=== PATIENT | male | born 1965 | race Two or more races ===

== ENCOUNTER 2025-03-23 12:58 | Inpatient (IN) | payer MEDICAID, OTHER ==
[~2025-03-23] VITALS: Ht 172.7 cm; Wt 78.1 kg
[~2025-03-23 12:58] MED LIST: ENAL1TAB48 PO; HYDR12.59 PO; HYDR25TA4 PO; POTA1TAB4 PO
--- NOTE | 2025-03-23 14:40 | ED.PDOC ---
HPI (NEURO) HPI Comments This is a 59 year old male BIB son presenting to the ED with chief complaint of dizziness. Son reports that the patient has been experiencing dizziness with associated mild posterior headache since last night, but this morning he began to have episodes of nausea and vomiting. Son relays that the patient has history of a CVA in December of this year and is currently wheelchair bound. Patient denies any abdominal pain, chest pain, SOB, numbness, or weakness. Chief Complaint: Dizziness Time Seen by MD: 14:36 Reviewed Notes: Nurses Notes, Medications, Allergies Information Source: Patient Mode of Arrival: Wheelchair Severity: Moderate Dizziness/Weakness Severity: Unable to do activities Headache Severity: Mild Timing: Days Duration: Since onset Prehospital treatment: None Headache Quality: Aching Headache Location: Occipital Onset: At rest Circumstances: Spontaneous Past Medical History PAST MEDICAL HISTORY: CVA Surgical History: Denies all surgeries Family History Family History: Reviewed,noncontributory to illness Social History Smoker: Non-Smoker Alcohol: Denies ETOH Use Drugs: Denies Drug Use Lives In: Home Constitutional: denies: chills, diaphoresis, fatigue, fever, malaise, sweats, weakness, others EENTM: denies: blurred vision, double vision, ear bleeding, ear discharge, ear drainage, ear pain, ear ringing, eye pain, eye redness, hearing loss, mouth pain, mouth swelling, nasal discharge, nose bleeding, nose congestion, nose pain, photophobia, tearing, throat pain, throat swelling, voice changes, others Respiratory: denies: cough, hemoptysis, orthopnea, SOB at rest, shortness of breath, SOB with excertion, stridor, wheezing, others Cardiovascular: denies: chest pain, dizzy spells, diaphoresis, Dyspnea on exertion, edema, irregular heart beat, left arm pain, lightheadedness, palpitations, PND, syncope, others Gastrointestinal: reports: nausea, vomiting; denies: abdomen distended, abdominal pain, blood streaked bowels, constipated, diarrhea, dysphagia, difficulty swallowing, hematemesis, melena, poor appetite, poor fluid intake, rectal bleeding, rectal pain, others Genitourinary: denies: burning, dysuria, flank pain, frequency, hematuria, incontinence, penile discharge, penile sore, pain, testicle pain, testicle swelling, urgency, others Neurological: reports: dizziness, headache; denies: fainting, left sided numbness, left sided weakness, numbness, paresthesia, pre-existing deficit, right sided numbness, right sided weakness, seizure, speech problems, tingling, tremors, weakness, others Musculoskeletal: denies: back pain, gout, joint pain, joint swelling, muscle pain, muscle stiffness, neck pain, others Integumetry: denies: bruises, change in color, change in hair/nails, dryness, laceration, lesions, lumps, rash, wounds, others Allergic/Immunocompromised: denies: Difficulty Healing, Frequent Infections, Hives, Itching, others Hematologic/Lymphatic: denies: anemia, blood clots, easy bleeding, easy bruising, swollen glands, others Endocrine: denies: excessive hunger, excessive sweating, excessive thirst, excessive urination, flushing, intolerance to cold, intolerance to heat, unexplained weight gain, unexplained weight loss, others Psychiatric: denies: anxiety, bipolar disorder, depression, hopeless, panic disorder, schizophrenia, sleepless, suicidal, others All Other Systems: Reviewed and Negative Physical Exam General Appearance: No Apparent Distress, Other (Chronically ill-appearing wheelchair bound) HEENT: Normal ENT Inspection, Pharynx Normal, TMs Normal Neck: Full Range of Motion, Non-Tender, Normal, Normal Inspection Respiratory: Chest Non-Tender, Lungs Clear, No Accessory Muscle Use, No R espiratory Distress, Normal Breath Sounds Cardiovascular: No Edema, No JVD, No Murmur, No Gallop, Normal Peripheral Pulses, Regular Rate/Rhythm Breast Exam: Deferred Gastrointestinal: No Organomegaly, Non Tender, No Pulsatile Mass, Normal Bowel Sounds, Soft Genitalia: Deferred Pelvic: Deferred Rectal: Deferred Extremities: No calf tenderness, Normal capillary refill, Normal inspection, Non-tender, No pedal edema Musculoskeletal : Apperance: Normal Neurologic: Alert, Normal Affect, Normal Mood, No Sensory Deficits Cerebellar Function: NOT DONE Reflexes: NOT DONE Skin: Dry, Normal Color, Warm Lymphatic: No Adenopathy Was a procedure done? Was a procedure done?: No Differential Diagnosis (SZ) Seizure: N/A CVA: Encephalopathy, Hypoglycemia General Weakness: Hypotension, Hypovolemia Headache: CVA, Mass Lesion X-Ray, Labs, Meds, VS Vital Signs Date Time Temp Pulse Resp B/P (MAP) Pulse Ox O2 Delivery O2 Flow Rate FiO2 03/23/25 17:58 98.4 70 16 118/84 (95) 100 98.4 03/23/25 15:18 98.2 77 16 115/76 (89) 98 98.2 03/23/25 13:18 75 03/23/25 13:00 97.8 81 18 128/91 98 97.8 Lab Test 03/23/25 15:58 03/23/25 14:40 03/23/25 13:10 Range/Units Troponin I High Sensitivity < 3 L < 3 L </=54 ng/L White Blood Count 8.5 4.4-10.8 10^3/uL Red Blood Count 4.93 4.5-5.90 10^6/uL Hemoglobin 14.9 13.5-17.5 g/dL Hematocrit 43.5 41.0-53.0 % Mean Corpuscular Volume 88.3 80.0-100.0 fL Mean Corpuscular Hemoglobin 30.1 28.0-32.0 pg Mean Corpuscular Hemoglobin Concent 34.1 32.0-36.0 g/dL Red Cell Distribution Width 13.0 11.8-14.3 % Platelet Count 263 140-450 10^3/uL Mean Platelet Volume 7.2 6.9-10.8 fL Neutrophils (%) (Auto) 70.4 37.0-80.0 % Lymphocytes (%) (Auto) 21.6 10.0-50.0 % Monocytes (%) (Auto) 6.3 0.0-12.0 % Eosinophils (%) (Auto) 1.1 0.0-7.0 % Basophils (%) (Auto) 0.6 0.0-2.0 % Neutrophils # (Auto) 6.0 1.6-8.6 10 ^3/uL Lymphocytes # (Auto) 1.8 0.4-5.4 10 ^3/uL Monocytes # (Auto) 0.5 0-1.3 10 ^3/uL Eosinophils # (Auto) 0.1 0-0.8 10 ^3/uL Basophils # (Auto) 0.1 0-0.2 10 ^3/uL Nucleated Red Blood Cells 0.0 % Sodium Level 140 136-145 mmol/L Potassium Level 4.5 3.5-5.1 mmol/L Chloride Level 102 98-107 mmol/L Carbon Dioxide Level 26 20-31 mmol/L Anion Gap 12 5-15 Blood Urea Nitrogen 12 9-23 mg/dL Creatinine 0.91 0.700-1.30 mg/dL Glomerular Filtration Rate Calc 98 >90 mL/min BUN/Creatinine Ratio 13.2 10.0-20.0 Serum Glucose 146 H 74-106 mg/dL Calcium Level 10.1 8.7-10.4 mg/dL B-Type Natriuretic Peptide 11.62 0-100 pg/mL POC Glucose 131 H 70-106 mg/dl Time of 1ST Reevaluation: 15:35 Reevaluation 1ST: Unchanged Patient Education/Counseling: Diagnosis, Treatment Family Education/Counseling: Diagnosis, Treatment Departure 1 Departure Time of Disposition: 19:03 (Patient with a worsening dizziness and weakness. We will admit patient for further workup) Impression: Primary Impression: Near syncope Additional Impressions: Dizziness Generalized weakness Disposition: ADMITTED INPATIENT Admit to: [facility] Condition: Guarded Critical Care Note Critical Care Time?: No Stability Stability form required: No Heart Score Heart Score: Heart Score Response (Comments) Value History N/A 0 EKG N/A 0 Age N/A 0 Risk Factors N/A 0 Troponin N/A 0 Total 0 I personally scribed for JENI MARINELLI MD ([email or web address]) on 03/23/25 at 14:40. Electronically submitted by Rajiv May ([email or web address]). JENI MARINELLI MD Mar 23, 2025 14:40
[2025-03-23 14:51] LABS: Hematocrit 43.5 % (41.0-53.0); Hemoglobin 14.9 g/dL (13.5-17.5); Mean Corpuscular Hemoglobin 30.1 pg (28.0-32.0); Mean Corpuscular Volume 88.3 fL (80.0-100.0); Nucleated Red Blood Cells % 0.0 %
[2025-03-23 14:56] LABS: Chloride 102 mmol/L (98-107); Potassium 4.5 mmol/L (3.5-5.1); Sodium 140 mmol/L (136-145)
[2025-03-23 14:57] LABS: Anion Gap 12 (5-15); Calcium 10.1 mg/dL (8.7-10.4); Carbon Dioxide 26 mmol/L (20-31)
[2025-03-23 15:02] LABS: BUN/Creatinine Ratio 13.2 (10.0-20.0); Blood Urea Nitrogen 12 mg/dL (9-23)
[2025-03-23 15:04] LABS: Glucose 146 mg/dL (74-106)
--- NOTE | 2025-03-23 15:29 | DVH ---
EXAM: XY CHEST PORTABLE HISTORY: weakness COMPARISON: None TECHNIQUE: Portable upright AP view of the chest was performed. FINDINGS: No pneumothorax, consolidative infiltrates, or pulmonary edema. The heart is not enlarged. IMPRESSION: No acute intrathoracic process.
--- NOTE | 2025-03-23 16:22 | DVH ---
EXAM: CT HEAD WITHOUT CONTRAST INDICATION: weakness TECHNIQUE: CT images of the head were obtained without administration of IV contrast. CT scans at this facility use dose modulation, iterative reconstruction, and/or weight based dosing when appropriate to reduce radiation dose to as low as reasonably achievable. COMPARISON: None FINDINGS: PARENCHYMA: No acute hemorrhage. There is no mass effect, midline shift, or herniation. There is preservation of the staples white differentiation. Large area of encephalomalacia of the right posterior frontal lobe measuring 4.6 x 4.6 cm. Small areas of periventricular white matter hypoattenuation. VENTRICLES: No hydrocephalus. EXTRA-AXIAL SPACES: No extra-axial fluid collections. OTHER: The bony structures are intact. Visualized portions of the paranasal sinuses and mastoid air cells are clear. IMPRESSION: 1. No CT evidence of an acute intracranial abnormality. Sequelae of prior encephalomalacia/ large territory infarct along the right middle cerebral artery territory in the right posterior frontal lobe.
[2025-03-23] MEDS ORDERED: ONDANSETRON HCL 4 MG/2 ML VIAL IV PRN (19:30)
[2025-03-23] MEDS ORDERED: HYDROcodone-ACET 5/325MG TAB PO PRN (19:30)
[2025-03-23] MEDS ORDERED: ACETAMINOPHEN 325 MG TAB PO PRN (19:30)
[2025-03-23] MEDS ORDERED: DOCUSATE SOD 100 MG CAP PO PRN (19:30)
--- NOTE | 2025-03-23 21:20 | DVHHP2 ---
History of Present Illness Reason for Visit: Generalized weakness History of Present Illness The patient is a 59-year-old male wheelchair-bound with past medical history of CVA with left-sided deficit and hypertension who presented to [facility] ED accompanied by his son with complaint of dizziness. As reported by son, patient has been experiencing dizziness associated with headache, nausea, vomiting, and generalized weakness. Son reports that patient will started physical therapy next week Wednesday. Patient was seen and evaluated in the ED, laboratory data shows WBC 8.5, platelets 263, sodium 140, potassium 4.5, BUN 12, creatinine 0.91, GFR 98, glucose 146, calcium 10.1, troponin < 3, BNP 11.42, blood pressure 118/84, heart rate 70, temperature 98.4 F, O2 saturation 99% on room air. Head CT showed no evidence of acute intracranial abnormality; sequelae of prior encephalomalacia/large territorial infarct along the right middle cerebral artery territory in the right posterior frontal lobe. Please see medication orders section in the computer. On my assessment, patient denied chest pain, no headache, diaphoresis, shortness of breaths, no abdominal pain, diarrhea, nausea, vomiting, fever, no chills. Patient was admitted for further neurology evaluation and medical management. Past Medical History CVA, HTN Past Surgical History Denies all surgeries Family History Reviewed, noncontributory to the management of this case. Past Social History The patient lives at home, denies smoking, alcohol or illicit drugs abuse. Review of Systems Constitutional: Yes: Weakness; No: Fever, Chills, Sweats, Malaise, Other Eyes: No: Pain, Vision change, Conjunctivae inflammation, Eyelid inflammation, Other, Redness ENT: No: Ear pain, Ear discharge, Nose pain, Nose discharge, Nose congestion, Mouth pain, Mouth swelling, Throat pain, Throat swelling, Other Respiratory: No: Cough, Dry, Shortness of breath, SOB with excertion, Wheezing, Hemoptysis, Pleuritic Pain, Sputum, Wheezing, Other Cardiovascular: No: Chest Pain, Palpitations, Orthopnea, Paroxysmal Noc. Dyspnea, Edema, Lt Headedness, Other Gastrointestinal: Nausea, Vomiting; No: Abdominal Pain, Diarrhea, Constipation, Melena, Hematochezia, Other Genitourinary: No Dysuria, No Frequency, No Incontinence, No Hematuria, No Retention, No Other Musculoskeletal: No: other, neck pain, shoulder pain, arm pain, back pain, hand pain, leg pain, foot pain Skin: No: Rash, Lesions, Jaundice, Bruising, Other Neurological: Weakness (Left-sided), Other (Headache); No: Numbness, Incoordination, Change in speech, Confusion, Seizures Allergies: Coded Allergies: NO KNOWN ALLERGIES (Unverified , 08/01/23) Medications Current Medications Medications Dose Ordered Sig/Kirill Route Start Time Stop Time Status Last Admin Dose Admin Sodium Chloride 10 ml Q8HR IV 03/23/25 22:00 Acetaminophen/ Hydrocodone Bitart 1 tab Q4HP PRN PO 03/23/25 19:30 Ondansetron HCl 4 mg Q4HP PRN IV 03/23/25 19:30 Docusate Sodium 100 mg BIDPRN PRN PO 03/23/25 19:30 Acetaminophen 650 mg Q6HP PRN PO 03/23/25 19:30 Exam Vital Signs Vital Signs Date Time Temp Pulse Resp B/P (MAP) Pulse Ox O2 Delivery O2 Flow Rate FiO2 03/23/25 20:58 98.4 76 19 111/83 (92) 99 98.4 General Appearance: Alert, Oriented X3, Cooperative, No acute distress HEENT: Atraumatic, PERRLA, EOMI, Mucous membr. moist/pink Respiratory: Normal air movement Cardiovascular: Regular rate, Normal S1, Normal S2, No murmurs Abdominal: Normal bowel sounds, Soft, No tenderness, No hepatospenomegaly, No masses Extremities: No clubbing, No cyanosis, No edema, Normal pulses, No tenderness/swelling Skin: No rashes, No significant lesion Neuro: Normal speech, Normal tone, Sensation intact, Cranial nerves 3-12 NL, Reflexes 2+, Other (Generalized weakness) Psych/Mental Status: Mental status NL, Mood NL Labs/Xrays Labs Test 03/23/25 15:58 03/23/25 14:40 03/23/25 13:10 Range/Units Troponin I High Sensitivity < 3 L </=54 ng/L White Blood Count 8.5 4.4-10.8 10^3/uL Red Blood Count 4.93 4.5-5.90 10^6/uL Hemoglobin 14.9 13.5-17.5 g/dL Hematocrit 43.5 41.0-53.0 % Mean Corpuscular Volume 88.3 80.0-100.0 fL Mean Corpuscular Hemoglobin 30.1 28.0-32.0 pg Mean Corpuscular Hemoglobin Concent 34.1 32.0-36.0 g/dL Red Cell Distribution Width 13.0 11.8-14.3 % Platelet Count 263 140-450 10^3/uL Mean Platelet Volume 7.2 6.9-10.8 fL Neutrophils (%) (Auto) 70.4 37.0-80.0 % Lymphocytes (%) (Auto) 21.6 10.0-50.0 % Monocytes (%) (Auto) 6.3 0.0-12.0 % Eosinophils (%) (Auto) 1.1 0.0-7.0 % Basophils (%) (Auto) 0.6 0.0-2.0 % Neutrophils # (Auto) 6.0 1.6-8.6 10 ^3/uL Lymphocytes # (Auto) 1.8 0.4-5.4 10 ^3/uL Monocytes # (Auto) 0.5 0-1.3 10 ^3/uL Eosinophils # (Auto) 0.1 0-0.8 10 ^3/uL Basophils # (Auto) 0.1 0-0.2 10 ^3/uL Nucleated Red Blood Cells 0.0 % Sodium Level 140 136-145 mmol/L Potassium Level 4.5 3.5-5.1 mmol/L Chloride Level 102 98-107 mmol/L Carbon Dioxide Level 26 20-31 mmol/L Anion Gap 12 5-15 Blood Urea Nitrogen 12 9-23 mg/dL Creatinine 0.91 0.700-1.30 mg/dL Glomerular Filtration Rate Calc 98 >90 mL/min BUN/Creatinine Ratio 13.2 10.0-20.0 Serum Glucose 146 H 74-106 mg/dL Hemoglobin A1c 7.6 H <5.7 % A1C Calcium Level 10.1 8.7-10.4 mg/dL B-Type Natriuretic Peptide 11.62 0-100 pg/mL POC Glucose 131 H 70-106 mg/dl PATIENT: JACQUI MORGAN ACCT: [id number] UNIT: [id number] : 1965 LOC: ER ROOM / BED: / AGE / SEX: 59 / M ADM STATUS: REG ER SERVICE 1433 ORDERING PHYSICIAN: JENI MARINELLI MD PROCEDURE(s): HWOCT - HEAD WITHOUT CONTRAST REASON: weakness ORDER NUMBER(s): [id number], ACCESSION NUMBER(s): [id number] EXAM: CT HEAD WITHOUT CONTRAST INDICATION: weakness TECHNIQUE: CT images of the head were obtained without administration of IV contrast. CT scans at this facility use dose modulation, iterative reconstruction, and/or weight based dosing when appropriate to reduce radiation dose to as low as reasonably achievable. COMPARISON: None FINDINGS: PARENCHYMA: No acute hemorrhage. There is no mass effect, midline shift, or herniation. There is preservation of the staples white differentiation. Large area of encephalomalacia of the right posterior frontal lobe measuring 4.6 x 4.6 cm. Small areas of periventricular white matter hypoattenuation. VENTRICLES: No hydrocephalus. EXTRA-AXIAL SPACES: No extra-axial fluid collections. OTHER: The bony structures are intact. Visualized portions of the paranasal sinuses and mastoid air cells are clear. IMPRESSION: 1. No CT evidence of an acute intracranial abnormality. Sequelae of prior encephalomalacia/large territory infarct along the right middle cerebral artery territory in the right posterior frontal lobe. ORDERING PHYSICIAN: JENI MARINELLI MD PROCEDURE(s): CXRP - CHEST PORTABLE REASON: weakness ORDER NUMBER(s): [id number], ACCESSION NUMBER(s): [id number] EXAM: XY CHEST PORTABLE HISTORY: weakness COMPARISON: None TECHNIQUE: Portable upright AP view of the chest was performed. FINDINGS: No pneumothorax, consolidative infiltrates, or pulmonary edema. The heart is not enlarged. IMPRESSION: No acute intrathoracic process. SEPSIS Sepsis Screen Date sepsis recognized/suspect: Mar 23, 2025 Time Sepsis recognized/suspect: 1301 Recent Procedure: No On Antibiotic Therapy: No Respiratory Rate >20: No Heart Rate >90: No Temp<36 C (96.8 F) or >38.3 C: No SBP <90 or MAP <65 mmHG: No New Acute Mental Status Change: No Is the patient on CPAP, BIPAP,: No Physician Orders Electrocardigram (03/23/25 13:27) Urinalysis (03/23/25 14:33) Chest Portable (03/23/25 14:33) Head Without Contrast (03/23/25 14:33) Electrocardigram (03/23/25 14:33) Electrocardigram (03/23/25 15:33) Electrocardigram (03/23/25 17:33) Allergies (03/23/25 19:20) Code Status (03/23/25 19:20) Sodium Chloride Lock (Saline Lock Ns) (03/23/25 22:00) Oxygen Per Hour (03/23/25 19:20) Hydrocodone-Acet 5/325mg Tab (Snover (03/23/25 19:30) Ondansetron Hcl (Zofran) (03/23/25 19:30) Docusate Sodium Capsule (Colace Capsule) (03/23/25 19:30) Fall Risk Precautions In Place QSHIFT (03/23/25 19:20) Complete Blood Count (03/24/25 04:00) Comprehensive Metabolic Panel (03/24/25 04:00) Cardiac Diet-2gna,Lofat,Lochol (03/24/25 Breakfast) Condition: Serious (03/23/25 19:20) Acetaminophen Tablet (Tylenol Tablet) (03/23/25 19:30) Maintain Bed Rest (03/23/25 19:20) Sequential Compression Device (03/23/25 ) Admit (03/23/25 21:18) Nitroglycerin Sublingual (Ntrostat Subli (03/23/25 21:30) Vital Signs Date Time Temp Pulse Resp B/P (MAP) Pulse Ox O2 Delivery O2 Flow Rate FiO2 03/23/25 20:58 98.4 76 19 111/83 (92) 99 98.4 03/23/25 17:58 98.4 70 16 118/84 (95) 100 98.4 03/23/25 15:18 98.2 77 16 115/76 (89) 98 98.2 Laboratory Tests Test 03/23/25 14:40 White Blood Count 8.5 10^3/uL (4.4-10.8) Assessment/Plan Assessment/Plan Generalized weakness Dizziness Nausea and vomiting History of cerebrovascular accident Plan 1. Admit to telemetry unit 2. Breathing treatment 3. Pain control management 4. Management of fluids and electrolytes 5. Consultation for Neurology/hospitalist 6. Diagnostic tests head CT 7. DVT prophylaxis-on aspirin 8. Repeat labs CBC, CMP in a.m. 9. Continue with current medical management 10. Treatment plan discussed with patient/son and RN. Patient/son verbalized understanding. Plan discussed with: Patient, Son (At bedside), Other (RN) My Orders Orders - MICHELLE AYALA DNP Procedure Category Date Status Time Allergies MAYTE 03/23/25 In Process 19:20 Code Status CODE 03/23/25 Transmitted 19:20 Sodium Chloride Lock PHA 03/23/25 In Process (Saline Lock Ns) 22:00 Oxygen Per Hour RT 03/23/25 Transmitted 19:20 Hydrocodone-Acet PHA 03/23/25 In Process 5/325mg Tab (Snover 19:30 Ondansetron Hcl PHA 03/23/25 In Process (Zofran) 19:30 Docusate Sodium PHA 03/23/25 In Process Capsule (Colace 19:30 Fall Risk Precautions MAYTE 03/23/[address] 19:20 Complete Blood Count LAB 03/24/25 Verified 04:00 Comprehensive LAB 03/24/25 Verified Metabolic Panel 04:00 Cardiac DIET 03/24/25 Transmitted Diet-2gna,Lofat,Lochol Breakfast Condition: Serious MAYTE 03/23/25 In Process 19:20 Acetaminophen Tablet PHA 03/23/25 In Process (Tylenol Tablet) 19:30 Maintain Bed Rest MAYTE 03/23/25 In Process 19:20 Sequential MAYTE 03/23/25 In Process Compression Device Admit ADMIT 03/23/25 Verified 21:18 Nitroglycerin PHA 03/23/25 Verified Sublingual (Ntrostat 21:30 Problem List: (1) Generalized weakness (2) Dizziness (3) Nausea and vomiting (4) History of cerebrovascular accident Date of Service: Mar 23, 2025 Billing Provider: MICHELLE AYALA DNP Common Visit Codes: [id number] INP/OBS CARE (HIGH) MICHELLE AYALA DNP Mar 23, 2025 21:20
[2025-03-23] MEDS ORDERED: MORPHINE SULFATE INJ 2 MG/ml SYRG IV PRN (21:30)
[2025-03-23] MEDS ORDERED: NITROGLYCERIN 0.4 MG SL TAB SL PRN (21:30)
[2025-03-23] MEDS: SODIUM CHLOR 0.9% PF (SALINE LOCK) 10ML VIAL/SYR IV SCH (23:37)
[2025-03-24 03:47] LABS: Hematocrit 44.3 % (41.0-53.0); Hemoglobin 14.8 g/dL (13.5-17.5); Mean Corpuscular Hemoglobin 30.0 pg (28.0-32.0); Mean Corpuscular Volume 90.0 fL (80.0-100.0); Nucleated Red Blood Cells % 0.1 %
[2025-03-24 04:08] LABS: Alkaline Phosphatase 84 U/L (46-116); Anion Gap 14 (5-15); BUN/Creatinine Ratio 27.5 (10.0-20.0); Blood Urea Nitrogen 22 mg/dL (9-23); Calcium 10.2 mg/dL (8.7-10.4); Carbon Dioxide 26 mmol/L (20-31); Chloride 101 mmol/L (98-107); Potassium 4.3 mmol/L (3.5-5.1); Sodium 141 mmol/L (136-145)
[2025-03-24 04:09] LABS: Total Protein 7.2 g/dL (5.7-8.2)
[2025-03-24 04:10] LABS: Albumin 4.6 g/dL (3.2-4.8); Bilirubin, Total 0.8 mg/dL (0.2-1.0)
[2025-03-24 04:16] LABS: Alanine Aminotransferase 92 U/L (7-40); Glucose 116 mg/dL (74-106)
[2025-03-24 08:00] VITALS: PULSE 68; RESP 17; O2SAT 100
[2025-03-24 08:26] LABS: Urine Protein, UAD TRACE (Negative)
--- NOTE | 2025-03-24 14:14 | DVHPN2 ---
Subjective I am assuming the care of the patient from today onwards. Patient is here for dizziness. Denies any headache denies any chest pain. Changes from previous H/P or p: No Changes Eyes: No Pain, No Vision change, No Conjunctivae inflammation, No Eyelid inflammation, No Other, No Redness ENT: No Ear pain, No Ear discharge, No Nose pain, No Nose discharge, No Nose congestion, No Mouth pain, No Mouth swelling, No Throat pain, No Throat swelling, No Other Cardiovascular: No Chest Pain, No Palpitations, No Orthopnea, No Paroxysmal Noc. Dyspnea, No Edema, No Lt Headedness, No Other Respiratory: No Cough, No Dry, No Shortness of breath, No SOB with excertion, No Wheezing, No Hemoptysis, No Pleuritic Pain, No Sputum, No Other Gastrointestinal: Nausea, Vomiting; No Abdominal Pain, No Diarrhea, No Constipation, No Melena, No Hematochezia, No Other Genitourinary: No Dysuria, No Frequency, No Incontinence, No Hematuria, No Retention, No Other Musculoskeletal: No other, No neck pain, No shoulder pain, No arm pain, No back pain, No hand pain, No leg pain, No foot pain Skin: No Rash, No Lesions, No Jaundice, No Bruising, No Other Objective Vitals Vital Signs Date Time Temp Pulse Resp B/P (MAP) Pulse Ox O2 Delivery O2 Flow Rate FiO2 03/24/25 12:00 98.4 63 15 118/76 (90) 99 98.4 03/24/25 08:00 Room Air* 0 21 Exam HEENT pupils are reactive Neck is supple CV is S1-S2 regular rate and rhythm Respiratory diminished breath sounds bases GI positive bowel sound Extremity no edema [employer]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 Medications Current Medications Medications Dose Ordered Sig/Kirill Route Start Time Stop Time Status Last Admin Dose Admin Sodium Chloride 10 ml Q8HR IV 03/23/25 22:00 03/24/25 13:55 10 ML Acetaminophen/ Hydrocodone Bitart 1 tab Q4HP PRN PO 03/23/25 19:30 Ondansetron HCl 4 mg Q4HP PRN IV 03/23/25 19:30 Docusate Sodium 100 mg BIDPRN PRN PO 03/23/25 19:30 Acetaminophen 650 mg Q6HP PRN PO 03/23/25 19:30 Nitroglycerin 0.4 mg Q5MINP PRN SL 03/23/25 21:30 Morphine Sulfate 2 mg Q30M PRN IV 03/23/25 21:30 Laboratory Results Laboratory Tests 03/24/25 03:22 Chemistry Test 03/23/25 14:40 03/24/25 03:22 Calcium Level 10.1 mg/dL (8.7-10.4) 10.2 mg/dL (8.7-10.4) Albumin 4.6 g/dL (3.2-4.8) Total Protein 7.2 g/dL (5.7-8.2) Cardiac Markers Test 03/23/25 14:40 B-Type Natriuretic Peptide 11.62 pg/mL (0-100) LFT Test 03/24/25 03:22 Alanine Aminotransferase (ALT) 92 U/L (7-40) H Alkaline Phosphatase 84 U/L (46-116) Aspartate Amino Transferase (AST) 58 U/L (13-40) H Total Bilirubin 0.8 mg/dL (0.2-1.0) HgA1c, TSH Test 03/23/25 14:40 Hemoglobin A1c 7.6 % A1C (<5.7) H Urinalysis Test 03/23/25 08:05 Urine Color Yellow (Yellow) Urine Clarity Turbid (Clear) H Urine pH 5.0 (5.0-9.0) Urine Specific [employer] 1.043 (1.001-1.035) Urine Protein Trace (Negative) H Urine Ketones 1+ (Negative) H Urine Blood Negative /uL (Negative) Urine Nitrite Negative (Negative) Urine Bilirubin Negative (Negative) Urine Urobilinogen 2 mg/dL (Negative) H Urine Leukocyte Esterase Negative /uL (Negative) Urine RBC 4 /hpf (0 - 3) Urine Microscopic WBC 12 /HPF (0-3) H Urine Squamous Epithelial Cells Few /hpf (<5) Urine Bacteria Few /hpf (None Seen) H Urine Mucus Few (None Seen) Urine Glucose 4+ mg/dL (Normal) H Assessment/Plan Assessment/Plan 59-year-old male with a known history of CVA with left-sided residual deficit from recent stroke, hypertension initially presented to the hospital with a dizziness found to have 1. Dizziness with a questionable ataxia gait ruled out acute cerebrovascular accident 2. Ruled out orthostatic hypotension 3. Recent history of CVA with a left-sided residual deficit 4. Hypertension 5. wheelchair-bound -check orthostatic vitals, MRI brain noncontrast -discharge plan if MRI brain is negative. Plan discussed with: Patient, Son My Orders Orders - MARILU SANTILLAN MD Procedure Category Date Status Time Orthostatic Vital ORDERS 03/24/25 Transmitted Signs 13:45 Brain Head Wo Contrast MRI 03/24/25 Logged 13:45 Problem List: (1) Hypertension (2) Dizziness (3) History of cerebrovascular accident Date of Service: Mar 24, 2025 Billing Provider: MARILU SANTILLAN MD Common Visit Codes: [id number] INP/OBS CARE(HIGH) MARILU SANTILLAN MD Mar 24, 2025 14:14
--- NOTE | 2025-03-24 15:47 | DVH ---
CLINICAL INDICATION: Dizziness. History of prior CVA. COMPARISON: CT HEAD WITHOUT CONTRAST on DOS: 03/23/25 TECHNIQUE: Multisequence multiplanar MRI images of the brain were obtained without contrast. FINDINGS: Moderate to large area of encephalomalacia in the right frontoparietal region from prior infarct. There are thin areas of restricted diffusion along the periphery of the previous infarct territory, most prominent medially, suggesting an acute or subacute component of ischemia, measuring up to 0.6 cm in thickness and extending up to 4.4 cm in AP dimension. No mass or midline shift. Scattered areas of T2/FLAIR hyperintense signal in the periventricular and subcortical white matter are nonspecific, but most likely sequelae of chronic small vessel ischemic disease.Ventricles and sulci are wi thin normal limits. Basal cisterns are patent. Cerebellum, brainstem, and midline structures are within normal limits. Paranasal sinuses are clear. Orbits are grossly unremarkable. IMPRESSION: 1. There is thin peripheral restricted diffusion along the previous infarct territory in the right frontoparietal region suggesting acute or subacute ischemia. Correlate with clinical findings. 2. Additional findings as detailed above.
[2025-03-24 17:36] VITALS: PULSE 72
[2025-03-24 18:30] VITALS: BP 133/103; PULSE 67; RESP 18; TEMP 97.8; O2SAT 97
[2025-03-24] MEDS ORDERED: FLUT1SPR5 (19:44)
[2025-03-24] MEDS ORDERED: AML5T PO (19:48)
[2025-03-24] MEDS ORDERED: SOFTSOL XX (19:48)
[2025-03-24] MEDS ORDERED: ROSU20TA56 PO (19:49)
[2025-03-24] MEDS ORDERED: RIV20T PO (19:49)
[2025-03-24] MEDS ORDERED: DAPA1TAB PO (19:51)
[2025-03-24] MEDS ORDERED: TELM80TA PO (19:53)
[2025-03-24] MEDS ORDERED: TELM80TA3 (19:53)
[2025-03-24 20:00] VITALS: PULSE 79; RESP 18; O2SAT 96
[2025-03-24 21:00] VITALS: BP 109/73; PULSE 79; RESP 17; TEMP 98; O2SAT 97
--- NOTE | 2025-03-24 21:46 | DVHINCON2 ---
Date of service: Mar 24, 2025 Referring Physician Sanket Reason for Consultation Left-sided weakness History of Present Illness Mr. Cornell is a 59 years old right-handed gentleman with a history of hypertension, diabetes, DVT, he came to the [facility] on 05/24/2024 with a chief complaint of nausea, vomiting, dizziness and mild headache. At that time, he is alert, and fully oriented, with his family, he provided the following history He has a history of stroke with residual left-sided weakness, which was not worse or getting worse before he came to the hospital or in the hospital. But he had acute stroke syndrome previously In 2021, he developed mild left-sided weakness, increased sweating, the patient is seen in the [facility] ER, and he was discharged several hours later without MRI/CT brain scan, he is not recommended to take aspirin or other blood thinner, he had good recovery, On 01/14/2025, he developed left-sided weakness in that he was not a move them at all, he was seen in the hospital in [place], where he was found to have acute stroke, and deep venous thrombosis (confirmed with hospital note), and he was told that the blood clot in the leg code stroke, according to the paperwork from he echo, the patient was discharged home with Xarelto. His home medication included Xarelto 20 mg daily, rosuvastatin 20 mg daily He snores but not very bad, but he stopped snoring after he use an adjustable bed (with the bed head elevated) Urinalysis, 03/23/2025: WBC: 12, urine leukocyte esterase: Negative CBC, 03/24/2025: Unremarkable BMP 03/24/2025: Unremarkable HGB A1c, 03/23/25: 7.6 TBI/AST/ALT/AP, 03/24/2025: 0.8/58/92/84 TG/HDL/LDL/HDL, 02/2025 (REPORTS FROM OUTSIDE): 151/90/29/35 CT head, 03/23/2025: No CT evidence of an acute intracranial abnormality. Sequelae of prior encephalomalacia/ large territory infarct along the right middle cerebral artery territory in the right posterior frontal lobe. MR brain, 03/24/2025: 1. There is thin peripheral restricted diffusion along the previous infarct territory in the right frontoparietal region suggesting acute or subacute ischemia. Correlate with clinical findings. 2. Additional findings as detailed above. Past Medical History Hypertension, diabetes, DVT Past Surgical History Bilateral shoulder surgery, bilateral knee surgery Family History: Patient reports no known family medical history. Family History Hypertension, diabetes, heart disease Social History He was a tobacco smoke, he has no history of drug/alcohol abuse Allergies: Coded Allergies: NO KNOWN ALLERGIES (Unverified , 08/01/23) Home Meds Active Scripts Enalapril Maleate (Enalapril Maleate) 20 Mg Tab, 1 TAB PO DAILY, #90 TAB 3 Re fills Prov:LINDA ALEXANDRA MD 08/02/23 Potassium Chloride (K-Tab) 20 Meq Tab, 20 MEQ PO DAILY, #30 TAB Prov:LINDA ALEXANDRA MD 08/02/23 Hydrochlorothiazide (Hydrochlorothiazide) 25 Mg Tab, 1 TAB PO DAILY, #30 TAB 5 Refills Prov:LINDA ALEXANDRA MD 08/02/23 Potassium Chloride (K-Tab) 20 Meq Tab, 20 MEQ PO DAILY, #30 TAB Prov:LINDA ALEXANDRA MD 08/02/23 Hydrochlorothiazide (Hydrochlorothiazide) 12.5 Mg Cap, 1 CAP PO DAILY, #90 CAP 3 Refills Prov:LINDA ALEXANDRA MD 08/02/23 Enalapril Maleate (Enalapril Maleate) 20 Mg Tab, 1 TAB PO BID, #180 TAB 1 Refill Prov:LINDA ALEXANDRA MD 08/02/23 Reported Medications Telmisartan-Hydrochlorothiazid (Micardis Hct 80-12.5 mg) 1 Tab Tab 03/24/25 Dapagliflozin Propanediol-Metf (Dapagliflozin Propanediol 10-1000 mg) 1 Tab Tab, 1 TAB PO DAILY 03/24/25 Rivaroxaban (Xarelto Tablet) 20 Mg Tb, 1 TAB PO DAILY 03/24/25 Rosuvastatin Calcium (Rosuvastatin Calcium) 20 Mg Tab, 1 TAB PO 03/24/25 Amlodipine Besylate (NORVASC TABLET) 5 Mg Tb, 1 TAB PO DAILY, #30 TAB 5 Refills 03/24/25 Soft Lens Products (Marylou Multiplus Lubricatin) Lubricat Alison, 1 XX, ML 03/24/25 Fluticasone Propionate (Nasal) (Flonase Allergy Relief) 50 Mcg/Act Spr, 50 MCG NA, SPRAY 03/24/25 Discontinued Reported Medications Telmisartan (Micardis) 80 Mg Tab, 80 MG PO, TAB 03/24/25 Current Medications Current Medications Medications (Trade) Dose Ordered Sig/Kirill Route PRN Reason Start Time Stop Time Status Last Admin Sodium Chloride (Saline Lock Ns) 10 ml Q8HR IV 03/23/25 22:00 03/24/25 13:55 Review of Systems As above, the other systems are negative Vital Signs Vital Signs Date Time Temp Pulse Resp B/P (MAP) Pulse Ox O2 Delivery O2 Flow Rate FiO2 03/24/25 21:00 98.0 79 17 109/73 (85) 97 98.0 03/24/25 17:36 Room Air* 0 21 Physical Exam GENERAL EXAM: General: the patient is well developed and nourished. No acute distress. HEENT: Normocephalic, neck is supple, no carotid bruits. No mass RESPIRATORY: Normal respiratory effort with symmetrical lung expansion. Lungs clear to auscultation. CARDIOVASCULAR: Regular rate and rhythm with no murmurs. S1, S2. ABDOMEN: Soft, nontender, normal bowel sound NEUROLOGICAL: MENTAL STATUS: Awake and alert. Oriented to person, place, time and general circumstances. Able to give personal history. SPEECH, LANGUAGE, HIGHER CORTICAL FUNCTION: no aphasia or dysathria. CRANIAL NERVES: #2: Intact visual perea to confrontation. The optic discs were sharp. #3,4,6: Pupils are equal, round and reactive. EOMs full and conjugate. #5: Diminished pinprick and light touch in the left trigeminal distribution. Mandibular strength intact. #7: Mild left facial weakness of upper motor neuron pattern #8: Hearing grossly normal to voice. #9,10: Uvula and soft palate rise in the midline. Swallow and voice are normal. #11: Trapezius and sternomastoid strength intact bilaterally. #12: Deviated to the left side. No fasciculations or atrophy. SENSATION: Sensation to touch and pinprick is diminished in the left arm than leg MOTOR: Increased muscle tone in the left arm than leg. Normal muscle bulk. No fasciculations. No abnormal movements or posturing. Muscle strength of the major groups in the right extremities is 5/5. Muscle strength of the major groups in the left extremities is upper: 1-2/5, lower extremity: 3-4/5 REFLEXES: Deep tendon reflexes increased in the left arm than leg. No pathological reflexes. CEREBELLAR/COORDINATION: Finger to nose and heel to burton are normal bilaterally. GAIT/STATION: Unsteady Labs/Diagnostic Data Labs Test 03/24/25 03:22 03/23/25 15:58 03/23/25 14:40 03/23/25 13:10 Range/Units White Blood Count 9.2 4.4-10.8 10^3/uL Red Blood Count 4.92 4.5-5.90 10^6/uL Hemoglobin 14.8 13.5-17.5 g/dL Hematocrit 44.3 41.0-53.0 % Mean Corpuscular Volume 90.0 80.0-100.0 fL Mean Corpuscular Hemoglobin 30.0 28.0-32.0 pg Mean Corpuscular Hemoglobin Concent 33.3 32.0-36.0 g/dL Red Cell Distribution Width 13.2 11.8-14.3 % Platelet Count 252 140-450 10^3/uL Mean Platelet Volume 7.3 6.9-10.8 fL Neutrophils (%) (Auto) 60.3 37.0-80.0 % Lymphocytes (%) (Auto) 29.3 10.0-50.0 % Monocytes (%) (Auto) 8.6 0.0-12.0 % Eosinophils (%) (Auto) 1.3 0.0-7.0 % Basophils (%) (Auto) 0.5 0.0-2.0 % Neutrophils # (Auto) 5.5 1.6-8.6 10 ^3/uL Lymphocytes # (Auto) 2.7 0.4-5.4 10 ^3/uL Monocytes # (Auto) 0.8 0-1.3 10 ^3/uL Eosinophils # (Auto) 0.1 0-0.8 10 ^3/uL Basophils # (Auto) 0 0-0.2 10 ^3/uL Nucleated Red Blood Cells 0.1 % Sodium Level 141 136-145 mmol/L Potassium Level 4.3 3.5-5.1 mmol/L Chloride Level 101 98-107 mmol/L Carbon Dioxide Level 26 20-31 mmol/L Anion Gap 14 5-15 Blood Urea Nitrogen 22 # 9-23 mg/dL Creatinine 0.80 0.700-1.30 mg/dL Glomerular Filtration Rate Calc 103 >90 mL/min BUN/Creatinine Ratio 27.5 H 10.0-20.0 Serum Glucose 116 H 74-106 mg/dL Calcium Level 10.2 8.7-10.4 mg/dL Total Bilirubin 0.8 0.2-1.0 mg/dL Aspartate Amino Transferase (AST) 58 H 13-40 U/L Alanine Aminotransferase (ALT) 92 H 7-40 U/L Alkaline Phosphatase 84 46-116 U/L Total Protein 7.2 5.7-8.2 g/dL Albumin 4.6 3.2-4.8 g/dL Troponin I High Sensitivity < 3 L </=54 ng/L Hemoglobin A1c 7.6 H <5.7 % A1C B-Type Natriuretic Peptide 11.62 0-100 pg/mL POC Glucose 131 H 70-106 mg/dl Test 03/23/25 08:05 Range/Units Urine Color Yellow Yellow Urine Clarity Turbid H Clear Urine pH 5.0 5.0-9.0 Urine Specific [place] 1.043 H 1.001-1.035 Urine Protein Trace H Negative Urine Ketones 1+ H Negative Urine Blood Negative Negative /uL Urine Nitrite Negative Negative Urine Bilirubin Negative Negative Urine Urobilinogen 2 H Negative mg/dL Urine Leukocyte Esterase Negative Negative /uL Urine RBC 4 0 - 3 /hpf Urine Microscopic WBC 12 H 0-3 /HPF Urine Squamous Epithelial Cells Few <5 /hpf Urine Bacteria Few H None Seen /hpf Urine Mucus Few None Seen Urine Glucose 4+ H Normal mg/dL Assessment Left hemiplegia, gait disturbance, secondary to previous stroke Clinically no evidence of new stroke The left hemiparesis in 2021 to be a stroke Deep venous thrombosis Sleep-related breathing disorder, resolved with adjustable bed Plan/Recommendation Monitoring Supportive treatment Telemetry Carotid Doppler GALILEO (okay as outpatient) Lovenox 1 milligram/kg subQ b.i.d. if okay with hospitalist Lipitor 20 mg daily Up to chair Physical therapy More recommendation per clinical course Progress: Poor This medical document was created using an electronic medical record system with [employer] system. Although this document has been carefully reviewed, there may still be some phonetic and typographical errors. These areas are purely typographical due to imperfections of the software programs, and do not reflect any compromise in the patient's medical care. Plan discussed with: Patient, Daughter, Son, Other MARKEL RIVAS MD Mar 24, 2025 21:46
[2025-03-24 22:56] LABS: Cholesterol 97 mg/dL (< 200)
[2025-03-24 23:05] LABS: HDL Cholesterol 37 mg/dL (40-59); Triglycerides 175 mg/dL (< 150)
[2025-03-25] VITALS (7 sets, daily range): BP systolic 107–123; BP diastolic 71–87; PULSE 64–80; RESP 16–18; TEMP 97.4–98; O2SAT 95–98
[2025-03-25] MEDS: ENOXAPARIN SOD 100 MG/1 ML SYRINGE SC ONE (11:11)
--- NOTE | 2025-03-25 16:21 | DVHDS2 ---
Discharge Summary Date of Admission Mar 23, 2025 at 21:18 Date of Discharge: Mar 25, 2025 Labs/Diagnostic Data: Laboratory Results Test 03/24/25 03:22 03/23/25 15:58 03/23/25 14:40 03/23/25 13:10 White Blood Count 9.2 10^3/uL (4.4-10.8) Red Blood Count 4.92 10^6/uL (4.5-5.90) Hemoglobin 14.8 g/dL (13.5-17.5) Hematocrit 44.3 % (41.0-53.0) Mean Corpuscular Volume 90.0 fL (80.0-100.0) Mean Corpuscular Hemoglobin 30.0 pg (28.0-32.0) Mean Corpuscular Hemoglobin Concent 33.3 g/dL (32.0-36.0) Red Cell Distribution Width 13.2 % (11.8-14.3) Platelet Count 252 10^3/uL (140-450) Mean Platelet Volume 7.3 fL (6.9-10.8) Neutrophils (%) (Auto) 60.3 % (37.0-80.0) Lymphocytes (%) (Auto) 29.3 % (10.0-50.0) Monocytes (%) (Auto) 8.6 % (0.0-12.0) Eosinophils (%) (Auto) 1.3 % (0.0-7.0) Basophils (%) (Auto) 0.5 % (0.0-2.0) Neutrophils # (Auto) 5.5 10 ^3/uL (1.6-8.6) Lymphocytes # (Auto) 2.7 10 ^3/uL (0.4-5.4) Monocytes # (Auto) 0.8 10 ^3/uL (0-1.3) Eosinophils # (Auto) 0.1 10 ^3/uL (0-0.8) Basophils # (Auto) 0 10 ^3/uL (0-0.2) Nucleated Red Blood Cells 0.1 % Sodium Level 141 mmol/L (136-145) Potassium Level 4.3 mmol/L (3.5-5.1) Chloride Level 101 mmol/L (98-107) Carbon Dioxide Level 26 mmol/L (20-31) Anion Gap 14 (5-15) Blood Urea Nitrogen 22 mg/dL (9-23) Creatinine 0.80 mg/dL (0.700-1.30) Glomerular Filtration Rate Calc 103 mL/min (>90) BUN/Creatinine Ratio 27.5 (10.0-20.0) Serum Glucose 116 mg/dL (74-106) Calcium Level 10.2 mg/dL (8.7-10.4) Total Bilirubin 0.8 mg/dL (0.2-1.0) Aspartate Amino Transferase (AST) 58 U/L (13-40) Alanine Aminotransferase (ALT) 92 U/L (7-40) Alkaline Phosphatase 84 U/L (46-116) Total Protein 7.2 g/dL (5.7-8.2) Albumin 4.6 g/dL (3.2-4.8) Triglycerides Level 175 mg/dL (< 150) Cholesterol Level 97 mg/dL (< 200) LDL Cholesterol 36 mg/dL (< 100) HDL Cholesterol 37 mg/dL (40-59) Troponin I High Sensitivity < 3 ng/L (</=54) Hemoglobin A1c 7.6 % A1C (<5.7) B-Type Natriuretic Peptide 11.62 pg/mL (0-100) POC Glucose 131 mg/dl (70-106) Test 03/23/25 08:05 Urine Color Yellow (Yellow) Urine Clarity Turbid (Clear) Urine pH 5.0 (5.0-9.0) Urine Specific [place] 1.043 (1.001-1.035) Urine Protein Trace (Negative) Urine Ketones 1+ (Negative) Urine Blood Negative /uL (Negative) Urine Nitrite Negative (Negative) Urine Bilirubin Negative (Negative) Urine Urobilinogen 2 mg/dL (Negative) Urine Leukocyte Esterase Negative /uL (Negative) Urine RBC 4 /hpf (0 - 3) Urine Microscopic WBC 12 /HPF (0-3) Urine Squamous Epithelial Cells Few /hpf (<5) Urine Bacteria Few /hpf (None Seen) Urine Mucus Few (None Seen) Urine Glucose 4+ mg/dL (Normal) Other Laboratory Tests 03/24/25 03:22 Brief Hx & Hospital Course: 59-year-old male with a known history of CVA with left-sided residual deficit from recent stroke, hypertension, history of DVT currently on Xarelto, initially presented to the hospital with a dizziness found to have TIA suspected acute CVA. Patient underwent MRI brain which shows peripheral restriction in the previous frontoparietal infarct area could be subacute. Plan of care discussed with the patient's family at bedside also I talked to Dr. Lyman on the phone who cleared the patient to be discharged if carotid ultrasound shows no evidence of any significant stenosis. Patient's family stated that they already have a Xarelto and cholesterol medication at home. Please follow up with Dr. Lyman in one week. Condition at Discharge: Stable Final Diagnosis/Problems List 59-year-old male with a known history of CVA with left-sided residual deficit from recent stroke, hypertension initially presented to the hospital with a dizziness found to have 1. Dizziness with a questionable ataxia gait ruled out acute cerebrovascular accident 2. Ruled out orthostatic hypotension 3. Recent history of CVA with a left-sided residual deficit 4. Hypertension 5. wheelchair-bound 6. Asymptomatic bacteriuria, no indication for any antibiotics. Discharge Disposition: Home SNF Discharge Will this Physician continue t: No Discharge Instruct/Medications Diet: Cardiac 2g Na,low cholest Activity: No Restrictions, As Tolerated Follow Up/Referral: Please follow up with the PCP as well as Neurology upon discharge in 1-2 weeks. Medications: Resume home medications Continued Medications: Amlodipine Besylate (Norvasc Tablet) 5 Mg Tb 1 TAB PO DAILY, #30 TAB 5 Refills Dapagliflozin Propanediol-Metf (Dapagliflozin Propanediol 10-1000 mg) 1 Tab Tab 1 TAB PO DAILY Enalapril Maleate (Enalapril Maleate) 20 Mg Tab 1 TAB PO BID, #180 TAB 1 Refill Enalapril Maleate (Enalapril Maleate) 20 Mg Tab 1 TAB PO DAILY, #90 TAB 3 Refills Fluticasone Propionate (Nasal) (Flonase Allergy Relief) 50 Mcg/Act Spr 50 MCG NA, SPRAY Hydrochlorothiazide (Hydrochlorothiazide) 25 Mg Tab 1 TAB PO DAILY, #30 TAB 5 Refills Potassium Chloride (K-Tab) 20 Meq Tab 20 MEQ PO DAILY, #30 TAB Rivaroxaban (Xarelto Tablet) 20 Mg Tb 1 TAB PO DAILY Rosuvastatin Calcium (Rosuvastatin Calcium) 20 Mg Tab 1 TAB PO Soft Lens Products (Marylou Multiplus Lubricatin) Lubricat Alison 1 XX, ML Telmisartan-Hydrochlorothiazid (Micardis Hct 80-12.5 mg) 1 Tab Tab Discontinued Medications: Hydrochlorothiazide (Hydrochlorothiazide) 12.5 Mg Cap 1 CAP PO DAILY, #90 CAP 3 Refills Potassium Chloride (K-Tab) 20 Meq Tab 20 MEQ PO DAILY, #30 TAB Scheduled Amlodipine Besylate (Norvasc Tablet), 1 TAB PO DAILY, (Reported) Dapagliflozin Propanediol-Metf (Dapagliflozin Propanediol 10-1000 mg), 1 TAB PO DAILY, (Reported) Enalapril Maleate (Enalapril Maleate), 1 TAB PO BID Enalapril Maleate (Enalapril Maleate), 1 TAB PO DAILY Hydrochlorothiazide (Hydrochlorothiazide), 1 CAP PO DAILY Hydrochlorothiazide (Hydrochlorothiazide), 1 TAB PO DAILY Potassium Chloride (K-Tab), 20 MEQ PO DAILY Potassium Chloride (K-Tab), 20 MEQ PO DAILY Rivaroxaban (Xarelto Tablet), 1 TAB PO DAILY, (Reported) Miscellaneous Medications Fluticasone Propionate (Nasal) (Flonase Allergy Relief), 50 MCG NA, (Reported) Rosuvastatin Calcium (Rosuvastatin Calcium), 1 TAB PO, (Reported) Soft Lens Products (Marylou Multiplus Lubricatin), 1 XX, (Reported) Telmisartan-Hydrochlorothiazid (Micardis Hct 80-12.5 mg), (Reported) Discontinued Medications Telmisartan (Micardis), 80 MG PO, (Reported) Discharge Statement: "Patient was advised to return to the ER or call 911 if any headaches, dizziness, shortness of breath, chest pain, abdominal pain, bleeding, fevers, or worsening of medical condition. Patient was counseled about treatment plan, medications, possible side effects, patientverbalized understanding. All questions were answered to the best of my ability. This discharge took greater then 30 minutes in planning, reviewing documentation, counseling the patient, and discussing with other team members." ASSESSMENT ASSESSMENT Assessment 59-year-old male with a known history of CVA with left-sided residual deficit from recent stroke, hypertension initially presented to the hospital with a dizziness found to have 1. Dizziness with a questionable ataxia gait ruled out acute cerebrovascular accident 2. Ruled out orthostatic hypotension 3. Recent history of CVA with a left-sided residual deficit 4. Hypertension 5. wheelchair-bound 6. Asymptomatic bacteriuria, no indication for any antibiotics. Date of Service: Mar 25, 2025 Billing Provider: MARILU SANTILLAN MD Common Visit Codes: 19664-CWD/OBS DISCH DAY >30min MARILU SANTILLAN MD Mar 25, 2025 16:21
--- NOTE | 2025-03-25 17:19 | DVH ---
EXAM: US CAROTID DUPLX W COLOR DOP INDICATION: STENOSIS COMPARISON: None TECHNIQUE: Grayscale, pulsed Doppler and color Doppler ultrasound examination of the carotid and vertebral artery systems bilaterally was performed. Study is done in accordance with NASCET criteria. FINDINGS: [RIGHT SIDE]: The peak systolic velocities are 71 cm/s in the distal CCA, 73.1 cm/s in the ICA. ICA/CCA ratio is 1. There is appropriate antegrade flow in the right vertebral artery. [LEFT SIDE]: The peak systolic velocities are 86.3 cm/s in the distal CCA, 86.3 cm/s in the ICA. ICA/CCA ratio is 1. There is appropriate antegrade flow in the left vertebral artery. IMPRESSION: 1. No hemodynamically significant stenosis noted in the right carotid system. No hemodynamically significant stenosis noted in the left carotid system.
[2025-03-25] MEDS ORDERED: ATORVASTATIN 20 MG TAB PO SCH (22:00)
[2025-03-25] MEDS ORDERED: ENOXAPARIN SOD 100 MG/1 ML SYRINGE SC SCH (22:00)
--- NOTE | 2025-03-26 06:38 | ECG ---
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
== END 2025-03-25 18:30 | disposition home or self-care (01) | DRG 58 ==
LOC: ER 12:58 → OVERFLOW 21:18 → TELE-CENTR 03-24 18:15
PROVIDERS: ADMIT Nurse Practitioner Family; ATTEND Nurse Practitioner Family
DX: R26.0 Ataxic gait (principal); G45.9 Transient cerebral ischemic attack, unspecified; Z79.01 Long term (current) use of anticoagulants; I69.354 Hemiplegia and hemiparesis following cerebral infarction affecting left non-dominant side; I10 Essential (primary) hypertension; E11.9 Type 2 diabetes mellitus without complications; F17.200 Nicotine dependence, unspecified, uncomplicated; Z99.3 Dependence on wheelchair; Z79.899 Other long term (current) drug therapy; Z86.718 Personal history of other venous thrombosis and embolism; Z83.3 Family history of diabetes mellitus; Z82.49 Family history of ischemic heart disease and other diseases of the circulatory system
CPT/HCPCS: 36415; 70450; 70551; 71045; 80048; 80053; 80061; 81001; 82962; 83036; 83880; 84484; 85025; 93005; 93886; G0378